=== PATIENT | male | born 1960 | race African-American/Black ===

== ENCOUNTER 2018-09-15 20:30 | Outpatient (CLI) | payer OTHER | END 2018-09-15 20:31 | disposition home or self-care (01) | LOC: SLEEPLAB 20:30 | PROVIDERS: ATTEND Internal Medicine Critical Care Medicine | DX: G47.33 Obstructive sleep apnea (adult) (pediatric) (principal); R06.83 Snoring; G47.00 Insomnia, unspecified; E66.9 Obesity, unspecified; Z68.33 Body mass index [BMI] 33.0-33.9, adult | CPT/HCPCS: 95811 ==

== ENCOUNTER 2019-04-25 19:30 | Outpatient (CLI) | payer BC | END 2019-04-25 19:31 | disposition home or self-care (01) | LOC: SLEEPLAB 19:30 | PROVIDERS: ATTEND Internal Medicine Critical Care Medicine | DX: G47.33 Obstructive sleep apnea (adult) (pediatric) (principal); R06.83 Snoring | CPT/HCPCS: 95811 ==

== ENCOUNTER 2024-04-01 13:57 | Emergency (ER) | payer BC ==
[2024-04-01] MEDS ORDERED: Ketorolac Tromethamine 30 MG (1 mL) VIAL ONE (15:46)
[2024-04-01] MEDS ORDERED: Lidocaine 4% Patch TD SCH (16:00)
[2024-04-02] MEDS ORDERED: Transdermal Patch Removal TOP SCH (06:00)
== END 2024-04-01 16:01 | disposition home or self-care (01) ==
LOC: ERS 13:57
DX: M25.522 Pain in left elbow (principal); M54.9 Dorsalgia, unspecified; M25.562 Pain in left knee; I10 Essential (primary) hypertension; E11.9 Type 2 diabetes mellitus without complications; F17.290 Nicotine dependence, other tobacco product, uncomplicated; W19.XXXA Unspecified fall, initial encounter; Z79.84 Long term (current) use of oral hypoglycemic drugs
CPT/HCPCS: 72072; 72100; 96372; J1885